=== PATIENT | male | born 1970 | race Caucasian/White ===

== ENCOUNTER 2018-01-27 13:49 | Outpatient (CLI) | payer OTHER ==
[2018-01-27] MEDS ORDERED: BARIUM SULFATE 135 ML SUSP.RECON (E-Z-HD) PO ONE (14:10)
== END 2018-01-27 21:10 | disposition home or self-care (01) ==
LOC: SRD 13:49
PROVIDERS: ATTEND Otolaryngology
DX: R13.10 Dysphagia, unspecified (principal)
CPT/HCPCS: 74220-TC